=== PATIENT | female | born 1975 | race African-American/Black ===

== ENCOUNTER 2024-03-08 11:18 | Outpatient (CLI) | payer OTHER, MEDICAID ==
[2024-03-08 12:39] LABS: Hematocrit 33.3 % (34.9-44.5); Hemoglobin 10.8 g/dL (12.0-15.5); Mean Corpuscular HGB CONC 32.4 g/dL (32.0-36.0); Mean Corpuscular Hemoglobin 31.2 pg (27.0-33.0); Mean Corpuscular Volume 96.2 fL (81.6-98.3); Mean Platelet Volume 9.8 fL (7.4-10.4); Platelet Count 216 10x3/uL (150-450); RBC Distribution Width 17.2 % (11.5-14.5); Red Blood Cell (RBC) Count 3.46 10x6/uL (3.90-5.03); White Blood Cell (WBC) Count 4.3 10x3/uL (3.5-10.5)
[2024-03-08 12:44] LABS: MDiff Complete? YES
[2024-03-08 12:56] LABS: Anion Gap 14 mmol/L (10-20); BUN (Urea Nitrogen) 14 mg/dL (7.0-18.7); Calc. Creatinine Clearance 0 mL/min (70-130); Calcium 9.3 mg/dL (7.8-10.44); Carbon Dioxide 20 mmol/L (22-29); Chloride 108 mmol/L (98-107); Estimated GFR 86; Glucose 78 mg/dL (70-105); Potassium 4.2 mmol/L (3.5-5.1); Sodium 138 mmol/L (136-145)
[2024-03-08 12:58] LABS: Eosinophils 2 % (0-10); Lymphocytes 53 % (21-51); Monocytes 9 % (0-10); Neutrophil 30 % (42-75); Reactive Lymphocytes 5 % (0-10)
[2024-03-08 13:00] LABS: Anisocytosis SLIGHT = 6-15 cells (100X) (0-5/hpf); Hypochromia SLIGHT = 6-15 cells (100X) (0-5/hpf); Macrocytosis SLIGHT = 6-15 cells (100X) (0-5/hpf); Poikilocytosis SLIGHT = 6-15 cells (100X) (0-5/hpf)
[2024-03-08 13:01] LABS: Ovalocytes SLIGHT = 2-5 cells (100X) (0-1/hpf); Platelet Adequacy Comment Appears Adequate; Target Cells SLIGHT = 2-5 cells (100X) (0-1/hpf)
== END 2024-03-08 11:19 | disposition home or self-care (01) ==
LOC: CSHLAB 11:18
PROVIDERS: ATTEND Specialist
DX: Z01.818 Encounter for other preprocedural examination (principal); R18.8 Other ascites; K43.9 Ventral hernia without obstruction or gangrene
CPT/HCPCS: 71046; 80048; 85025; 93005; 93010

== ENCOUNTER 2024-03-11 07:17 | Day surgery (SDC) | payer OTHER, MEDICAID ==
[2024-03-08 12:10] VITALS: BMI 23.8
[2024-03-11] MEDS ORDERED: Ketorolac Tromethamine 30 MG (1 mL) VIAL ONE (08:01)
[2024-03-11] MEDS ORDERED: Acetaminophen 500 MG TAB ONE (08:01)
[2024-03-11] MEDS ORDERED: Midazolam HCl 2 mg/2 ml Vial ONE (10:05)
[2024-03-11] MEDS ORDERED: CEFAZOLIN 2 GM VIAL ONE (10:10)
[2024-03-11] MEDS ORDERED: Bupivacaine/Epinephrine 0.25% 30 ML VIAL ONE (10:10)
[2024-03-11] MEDS ORDERED: SUGAMMADEX SODIUM 200 MG/2 ML VIAL ONE (10:25)
[2024-03-11] MEDS ORDERED: Rocuronium Bromide 10 MG/ML (10ML VIAL) ONE (10:25)
[2024-03-11] MEDS ORDERED: Dexamethasone 20 MG/5 ML VIAL ONE (10:25)
[2024-03-11] MEDS ORDERED: Lidocaine 1% PF 5 ML VIAL ONE (10:25)
[2024-03-11] MEDS ORDERED: fentaNYL 50 mcg/mL 1 mL Vial ONE ×4 (10:25→12:59)
[2024-03-11] MEDS ORDERED: Ondansetron PF 4 MG/2 ML Vial ONE (10:25)
[2024-03-11] MEDS ORDERED: PROPOFOL 20 ML ONE (10:25)
[2024-03-11] MEDS ORDERED: PHENYLEPHRINE-NS 100 MCG/ML 10 ML SYRINGE ONE (10:43)
[2024-03-11] MEDS ORDERED: ePHEDrine Sulfate 50 MG/10 ML VIAL ONE (10:47)
[2024-03-11] MEDS ORDERED: HYDROcodone/Acetaminophen 5/325 mg Tablet ONE (13:22)
== END 2024-03-11 14:30 | disposition home or self-care (01) ==
LOC: CSHSDC 07:17
PROVIDERS: ATTEND Specialist
PROC: 0WUF4JZ Supplement Abdominal Wall with Synthetic Substitute, Percutaneous Endoscopic Approach (ICD-10-PCS; principal; 2024-03-11)
DX: K43.2 Incisional hernia without obstruction or gangrene (principal); R18.8 Other ascites; K43.9 Ventral hernia without obstruction or gangrene; Z88.0 Allergy status to penicillin; Z88.5 Allergy status to narcotic agent; Z79.899 Other long term (current) drug therapy; Z98.890 Other specified postprocedural states; F17.200 Nicotine dependence, unspecified, uncomplicated
CPT/HCPCS: 49593; 62225; C1781; J1100; J1885; J2250; J2405; J2704; J3010; S2900